=== PATIENT | female | born 1955 | race African-American/Black ===

== ENCOUNTER 2023-07-01 20:39 | Emergency (ER) | payer OTHER ==
[~2023-07-01] VITALS: Ht 170.2 cm; Wt 91.0 kg
[2023-07-01 20:41] VITALS: BP 159/62; PULSE 82; RESP 18; O2SAT 99
[2023-07-01 22:14] VITALS: TEMP 98
[2023-07-01] MEDS: ACETAMINOPHEN 325MG TABLET PO ONE (22:14)
== END 2023-07-02 01:00 | disposition home or self-care (01) ==
LOC: ER 20:39
DX: S00.03XA Contusion of scalp, initial encounter (principal); Z88.2 Allergy status to sulfonamides; W18.39XA Other fall on same level, initial encounter; Y93.89 Activity, other specified; Y92.89 Other specified places as the place of occurrence of the external cause; Y99.8 Other external cause status
CPT/HCPCS: 99284